=== PATIENT | female | born 1980 | race Caucasian/White ===

== ENCOUNTER 2019-08-29 13:21 | Observation (INO) | payer OTHER, SELFPAY ==
--- NOTE | ~2019-08-29 | XR_ITS ---
EXAMINATION: XR ERCP DATE: 08/31/2019 11:26 INDICATION: Gallstones TECHNIQUE: Multiple spot fluoroscopic images of the right upper quadrant were obtained during endosco pic retrograde cholangiopancreatography (ERCP) performed by Dr. Torres. Radiologist was not present f or the imaging or procedure. The amount of fluoroscopy time used during this procedure was 2.0 minute s. COMPARISON: Cholangiogram dated 08/30/2019 FINDINGS: Cholecystectomy clips in the right upper quadrant. Images demonstrate an endoscope in the second port ion of the duodenum with cannulation of first the main pancreatic duct and subsequently the common bi le duct. Retrograde contrast injections into the common bile duct demonstrates a normal caliber commo n bile duct and distal cystic duct with no evident internal filling defects on the contrast opacified portions of the duct. The distalmost duct remains unopacified. IMPRESSION: 1. Fluoroscopy utilized during ERCP. Please refer to the ERCP procedure note for additional details. Reviewed, dictated and finalized at location A. IMPRESSION: 1. Fluoroscopy utilized during ERCP. Please refer to the ERCP procedure note fo r additional details.
--- NOTE | ~2019-08-29 | US_ITS ---
EXAMINATION: US right upper quadrant DATE: 08/29/2019 14:16 INDICATION: Right upper quadrant pain TECHNIQUE: Multiple grayscale and Doppler ultrasound images of the abdomen were obtained. COMPARISON: None available FINDINGS: The head and and body of the pancreas are normal. The pancreatic tail is obscured by bowel gas. The liver is normal with normal echogenicity and echotexture. No surface nodularity. Normal hepa topetal flow in the main portal vein. Stones are present in the gallbladder. There is mild gallbladde r wall thickening measuring up to 5 mm. No pericholecystic fluid is identified. The normal common alexander e duct measures 4 mm. Sonographic James sign is positive. IMPRESSION: 1. Cholelithiasis, mild gallbladder wall thickening, and positive sonographic James sign which can b e seen in the setting of cholecystitis. Reviewed, dictated and finalized at location A. IMPRESSION: 1. Cholelithiasis, mild gallbladder wall thickening, and positive sonographic M urphy sign which can be seen in the setting of cholecystitis.
--- NOTE | ~2019-08-29 | XR_ITS ---
EXAMINATION: XR cholangiogram surg 1st inj DATE: 08/30/2019 16:26 INDICATION: Intraoperative cholangiogram TECHNIQUE: 208 fluoroscopic images of the right upper quadrant were obtained during intraoperative ch olangiography performed by the surgeon. I was not present in the operating room. Fluoroscopy exposure time was 36.2. COMPARISON: None. FINDINGS: Injected contrast progresses to the distal common bile duct but does not readily pass into the duodenum, consistent with distal bile duct obstruction. IMPRESSION: 1. Obstructed distal common bile duct. This finding was discussed with Dr. Vazquez in the operating r oom at 1545 hours on 08/30/2019. Reviewed, dictated and finalized at location A. IMPRESSION: 1. Obstructed distal common bile duct. This finding was discussed with Dr. Sharlene leon in the operating room at 1545 hours on 08/30/2019.
--- NOTE | ~2019-08-29 | NM_ITS ---
EXAMINATION: NM hepatobiliary w pharm DATE: 08/30/2019 10:01 INDICATION: Abdominal pain. COMPARISON: Ultrasound 08/29/2019 TECHNIQUE: 5.1 mCi Tc-99m mebrofenin (Choletec) was administered intravenously. Scintigraphic images of the abdomen were obtained for one hour. Then, 1.9 mcg sincalide (Kinevac) IV was administered, an d imaging was continued for 30 minutes. FINDINGS: There is normal clearance of radiotracer from the blood pool. There is homogeneous tracer u ptake by the liver. Activity progresses to the bowel and gallbladder. Gallbladder ejection fraction (GBEF) was 54%. Note that most patients with gallbladder dysfunction have GBEF < 35%, which overlaps with the broad normal range of 10-90%. IMPRESSION: 1. Normal hepatobiliary scintigraphy. Reviewed, dictated and finalized at location A.
[2019-08-29 13:37] VITALS: BP 109/65; PULSE 80; RESP 20; TEMP 36.9; O2SAT 99
--- NOTE | 2019-08-29 13:56 | ED.GENADULT ---
HPI - General Adult General Chief complaint: Abdominal Pain Stated complaint: abd pain Time Seen by Provider: 08/29/19 13:35 History of Present Illness HPI narrative: Patient is a 38 y/o female complaining of intermittent right upper abdominal pain for last 3 months. She states that she had an episode of severe pain while at work several hours ago. She rated her pain as 8/10 with some radiation to epigastric area. She suspects that coffee she drank this morning may have aggravated her pain. Currently, she states that her pain is better and rates it as 4/10. She has some nausea, but no vomiting. She has no fever, cough, chest pain or dysuria. Related Data Home Medications Medication Instructions Recorded Confirmed amitriptyline 50 mg PO HS 08/29/19 norgestimate-ethinyl estradiol 1 tablet PO HS 08/29/19 [Tri-Sprintec (28)] oxycodone-acetaminophen 1 tab/kg PO Q6-12H PRN 08/29/19 zolpidem 10 mg PO HS 08/29/19 Allergies Allergy/AdvReac Type Severity Reaction Status Date / Time No Known Allergies Allergy Verified 08/29/19 13:43 Review of Systems Constitutional: Constitutional: Denies chills, Denies fever(s), Denies headache(s) and Denies weakness Eyes: Eyes: Denies blurry vision ENT: Denies headache(s) and Denies neck pain Cardiovascular: Cardiovascular: Denies chest pain and Denies dyspnea Respiratory: Respiratory: Denies cough and Denies dyspnea Gastrointestinal: Gastrointestinal: Reports abdominal pain, Denies diarrhea, Reports nausea and Denies vomiting Genitourinary: Genitourinary: Denies hematuria and Denies dysuria Musculoskeletal: Musculoskeletal: Denies back pain and Denies neck pain Neurologic: Denies headache(s) and Denies weakness [facility] Social History Social History Gender identity (if verbalized by the patient): Female Exam Const: General: no acute distress and well developed Orientation/consciousness: oriented to person, oriented to place, oriented to time and patient oriented x3 HENMT: Head: normocephalic Ears: external ears normal General nose exam: Normal external nose present Eyes: General: appearance normal, both eyes and all related structures Conjunctivae: conjunctivae normal Neck: Neck: normal visual inspection and full ROM Chest: Chest palpation & inspection: normal inspection of the chest and no tenderness Resp: Effort & Inspection: normal respiratory effort Auscultation: clear to auscultation bilaterally Cardio: Rate: regular rate Rhythm: regular rhythm GI: GI Palp: Yes abdominal tenderness, Yes Soft to palpation and Yes Tenderness to palpation present (GI) (RUQ) Skin: General skin exam: normal color and turgor normal Neuro: General: oriented to person, oriented to place, oriented to time and patient oriented x3 Cognition (Neuro): normal cognition Extrem: General: normal to inspection, full ROM and no pedal edema Psych: Appearance: grossly normal Mental Status: mental status grossly normal Affect: normal affect Course Consultations Consultation #1: Discussed with Dr. Torres, who recommends admission for observation and order HIDA scan. Date: 08/29/19 Time: 15:37 Consultation #2: Discussed with FRANCINE Dotson, who agrees to admit to Dr. Guzman. Date: 08/29/19 Time: 16:14 Medical Decision Making Lab Data Result diagrams: 08/29/19 14:35 08/29/19 14:35 Labs: Lab Results 08/29/19 08/29/19 08/29/19 Range/Units 14:35 14:35 15:12 WBC 8.4 (4.5-10.0) K/mm3 RBC 3.95 L (4.2-5.4) M/mm3 Hgb 12.1 (12.0-15.0) g/dL Hct 36.3 L (37.0-47.0) % MCV 91.9 (80-100) fl MCH 30.6 (26-34) pg MCHC 33.3 (32-36) g/dl RDW 12.4 (11.5-14.5) % Plt Count 347 (150-375) k/mm3 MPV 10.9 H (7.4-10.4) fl Immature Gran % (Auto) 0.4 (0-0.5) % Neut % (Auto) 73.9 H (45.5-73.1) % Lymph % (Auto) 21.0 (18.3-44.2) % [place] % (Auto) 3.7 (2.6-8.5) %
[2019-08-29 14:46] LABS: Basophils Percent Auto 0.2 % (0.2-1.2); Eosinophils Absolute Auto 0.1 K/mm3 (0-0.3); Eosinophils Percent Auto 0.8 % (0-4.4); Hematocrit 36.3 % (37.0-47.0); Hemoglobin 12.1 g/dL (12.0-15.0); Immature Granulocyte Absolute 0.03 K/mm3 (0.00-0.031); Immature Granulocyte Percent A 0.4 % (0-0.5); Lymphocytes Absolute Auto 1.77 K/mm3 (0.9-3.2); Mean Corpuscular HGB Conc 33.3 g/dl (32-36); Mean Corpuscular Hemoglobin 30.6 pg (26-34); Mean Corpuscular Volume 91.9 fl (80-100); Mean Platelet Volume 10.9 fl (7.4-10.4); Monocytes Absolute Auto 0.3 K/mm3 (0.1-0.6); Monocytes Percent Auto 3.7 % (2.6-8.5); Neutrophils Absolute Auto 6.2 K/mm3 (1.3-6.7); Neutrophils Percent Auto 73.9 % (45.5-73.1); Platelet Count Result 347 k/mm3 (150-375); Red Blood Count 3.95 M/mm3 (4.2-5.4); Red Cell Distribution Width 12.4 % (11.5-14.5); White Blood Count 8.4 K/mm3 (4.5-10.0)
[2019-08-29 14:54] LABS: Alanine Aminotransferase 89 U/L (4-35); Alkaline Phosphatase 216 U/L (38-126); Aspartate Amino Transferase 113 U/L (14-36); Bilirubin,Total 0.9 mg/dL (0.2-1.3); Blood Urea Nitrogen 10 mg/dL (7-17); Carbon Dioxide 25 mmol/L (22-30); Chloride 104 mmol/L (98-107); Estimated CRCL calculation 91 ml/min; Estimated Glomerular Filt Rate > 60; Glucose 105 mg/dL (65-105); Lipase 33 U/L (23-300); Potassium 3.7 mmol/L (3.4-5.0); Sodium 137 mmol/L (137-145)
[2019-08-29 15:00] VITALS: BP 112/82; PULSE 82; RESP 20; O2SAT 98
[2019-08-29 15:23] LABS: Add Urine Microscopic? YES; Appearance Urine Clear (Clear); Bacteria Urine Trace /hpf; Bilirubin Urine Negative (Negative); Blood Urine Negative (Negative); Color Urine Amber (Yellow); Glucose Urine UA Negative (Negative); Ketones Urine Trace mg/dL (Negative); Leukocyte Esterase Ur Negative LEU/UL (Negative); Mucus Urine Heavy /lpf; Nitrate Urine Negative (Negative); Protein Urine Negative (Negative); RBC Urine 0-2 /hpf (0-2); Specific Grav Ur 1.018 (1.001-1.035); Squamous Epithelial Cell Urine Few /hpf (Few)
[2019-08-29] MEDS: KETOROLAC 30 MG/ML VIAL (*BKC) IV PUSH (16:20)
[2019-08-29 18:14] VITALS: BP 109/73; PULSE 77; RESP 20; O2SAT 98
[2019-08-29 18:15] LABS: Hepatitis B Surface Antigen Negative (Negative)
[2019-08-29 18:20] LABS: HAV RESULT Negative (Negative); Hepatitis B Core IgM Result Negative (Negative)
[2019-08-29 18:32] LABS: Hepatitis C Virus Antibody Negative (Negative)
--- NOTE | 2019-08-29 18:57 | PC.NURSE ---
This patient, Светлана Dangelo, was admitted to [facility] Surg Room 312-. Patient/family oriented to hospital policies and general routines including ID bracelet, bed and alarms, visiting hours, pain management, procedures, bathroom and other care routines, personal items, smoking policy, room service/diet, and visiting hours. Valuables list has been completed. Information on how to activate the Rapid Response Team has been discussed. Patient/Family are encouraged to report perceived risks to care and to ask questions if they do not understand what they are told or what they should do.
[2019-08-29 19:00] VITALS: BMI 31.7
--- NOTE | 2019-08-29 21:15 | PM.IMHP ---
H&P: HPI History of Present Illness Chief complaint: Abdominal pain. Narrative: Светлана Dangelo is a 38-year-old female earlier this afternoon for evaluation of abdominal pain. While at work today, not long after eating, she developed a sudden, severe pain in her right upper quadrant radiating somewhat into the epigastrium that she describes as a twisting or pressure like pain. It was severe enough that ?I was doubled over in pain and she rates that pain 8/10. She has had similar pains each night for the past for 5 days, and has been sleeping poorly due to the pain. She goes on to say that she has had these symptoms intermittently since May 2019, and they have increased in frequency and duration. She was seen by her primary care provider and in fact had a right upper quadrant ultrasound scheduled as an outpatient tomorrow. Prior to today, she has no known history of gallbladder disease. She does have a history of GERD, peptic ulcers, Arreola's esophagus, and diverticulitis but states that this pain is different to all of those. She has not had fever or chills but on occasion does have sweats when the pain is particularly intense. Occasionally she will have nausea with the pain but she has not had vomiting. She frequently has loose, oily bowel movements but she has not noticed blood or mucus in the stools. Review of Systems Review of Systems: Narrative: Twelve systems were reviewed with pertinent positives and negatives as per HPI. She denies chest pain and shortness of breath. No recent travel or sick contacts. No exposure to those positive for COVID to her knowledge. Except as documented, all other systems were reviewed and are negative. [facility] Past Medical History Medical History (Updated 08/29/19 @ 23:07 by Nila Ladd PA-C) Barretts esophagus (~2013) Diverticulitis Gastric ulcer Gastroesophageal reflux disease Surgical History Surgical History (Updated 08/29/19 @ 23:05 by Nila Ladd PA-C) History of tubal ligation Family History Family History (Updated 08/29/19 @ 23:05 by Nila Ladd PA-C) Sibling Acute myocardial infarction, Onset Age: 39 Diabetes mellitus Grandparent Congestive heart failure Mother Cerebrovascular accident Father Diabetes mellitus Social History Social History (Updated 08/29/19 @ 23:06 by Nila G. Gerling, PA-C) Social History: The patient lives in [place] with her and 2 children. She works at a local [employer]. She smoked cigarettes for 14 years, but has been vaping exclusively for 6 years. She used to binge drink, but has not had alcohol for 11 years. No illicit substance use. She designates her as her surrogate decision maker and she wishes to be a full code. Spiritual care concerns: No Meds Home Medications and Allergies Home Medications Medication Instructions Recorded Confirmed Type amitriptyline 50 mg PO HS 08/29/19 08/29/19 History norgestimate-ethinyl estradiol 1 tablet PO HS 08/29/19 08/29/19 History [Tri-Sprintec (28)] oxycodone-acetaminophen 1 tablet PO Q4H PRN 08/29/19 08/29/19 History zolpidem 10 mg PO HS 08/29/19 08/29/19 History Allergies Allergy/AdvReac Type Severity Reaction Status Date / Time oyster extract Allergy Severe Swelling Verified 08/29/19 20:06 of Lip/Tongue/Throat peach fuzz Allergy Severe Rash Uncoded 08/29/19 20:07 Vital Signs Vital Signs - 24 hr 08/29/19 13:37 08/29/19 15:00 08/29/19 18:14 Temperature 98.4 F Pulse Rate 80 82 77 Respiratory Rate 20 20 20 Blood Pressure 109/65 112/82 109/73 Pulse Oximetry 99 98 98 Exam Narrative: Exam Narrative: General: Well-developed female sitting up in bed reading a book in no distress. HEENT: Normocephalic, atraumatic. PERRL, EOMI. Sclerae anicteric. Oral mucosa moist. Neck: Supple. Respiratory: Lungs are clear to auscultation bilaterally. Cardiovascular: Regular rate and rhythm
[2019-08-29] MEDS: SODIUM CHLORIDE 0.9% IV 1,000 ML 100 ML IV CONT (21:44)
[2019-08-29 22:00] VITALS: BP 120/68; PULSE 74; RESP 20; TEMP 36.7; O2SAT 100
[2019-08-29] MEDS: AMITRIPTYLINE HCL 25 MG TABLET 50 MG PO (22:07)
[2019-08-29] MEDS: ZOLPIDEM TARTRATE 5 MG TABLET 10 MG PO (22:36)
[2019-08-29] MEDS: PANTOPRAZOLE SODIUM IV 40 MG VIAL IV PUSH (23:20)
[2019-08-30] VITALS (15 sets, daily range): BP systolic 94–144; BP diastolic 50–98; PULSE 64–84; RESP 12–20; TEMP 36.3–37; O2SAT 94–100
[2019-08-30 06:12] LABS: Basophils Percent Auto 0.4 % (0.2-1.2); Eosinophils Absolute Auto 0.1 K/mm3 (0-0.3); Eosinophils Percent Auto 2.3 % (0-4.4); Hematocrit 32.8 % (37.0-47.0); Hemoglobin 10.6 g/dL (12.0-15.0); Immature Granulocyte Absolute 0.01 K/mm3 (0.00-0.031); Immature Granulocyte Percent A 0.2 % (0-0.5); Lymphocytes Absolute Auto 2.58 K/mm3 (0.9-3.2); Lymphocytes Percent Auto 53.8 % (18.3-44.2); Mean Corpuscular HGB Conc 32.3 g/dl (32-36); Mean Corpuscular Hemoglobin 30.2 pg (26-34); Mean Corpuscular Volume 93.4 fl (80-100); Mean Platelet Volume 10.7 fl (7.4-10.4); Monocytes Absolute Auto 0.3 K/mm3 (0.1-0.6); Monocytes Percent Auto 5.6 % (2.6-8.5); Neutrophils Absolute Auto 1.8 K/mm3 (1.3-6.7); Neutrophils Percent Auto 37.7 % (45.5-73.1); Platelet Count Result 277 k/mm3 (150-375); Red Blood Count 3.51 M/mm3 (4.2-5.4); Red Cell Distribution Width 12.4 % (11.5-14.5); White Blood Count 4.8 K/mm3 (4.5-10.0)
[2019-08-30 06:23] LABS: Alanine Aminotransferase 124 U/L (4-35); Albumin Level 3.1 g/dL (3.5-5.1); Alkaline Phosphatase 200 U/L (38-126); Aspartate Amino Transferase 147 U/L (14-36); Bilirubin,Total 0.9 mg/dL (0.2-1.3); Blood Urea Nitrogen 9 mg/dL (7-17); Calcium 8.4 mg/dL (8.4-10.2); Carbon Dioxide 24 mmol/L (22-30); Chloride 107 mmol/L (98-107); Estimated CRCL calculation 92 ml/min; Estimated Glomerular Filt Rate > 60; Glucose 92 mg/dL (65-105); Potassium 3.8 mmol/L (3.4-5.0); Sodium 136 mmol/L (137-145)
[2019-08-30] MEDS: PANTOPRAZOLE SODIUM IV 40 MG VIAL IV PUSH ×2 (08:07→20:10)
--- NOTE | 2019-08-30 08:07 | WPDGICN ---
Assessment and Plan Assessment and plan (1) Cholecystitis with cholelithiasis: Qualifiers: Biliary obstruction: without biliary obstruction Cholecystitis acuity: acute Cholelithiasis location: gallbladder Qualified Code(s): K80.00 - Calculus of gallbladder with acute cholecystitis without obstruction Code(s): K80.10 - Calculus of gallbladder with chronic cholecystitis without obstruction Status: Acute Assessment and Plan: Abdominal pain consistent with cholecystitis. Patient has ultrasound which confirms gallstones and evidence for gallbladder inflammation. Elevated LFTs appear to correlate with this. Plan is for HIDA scan surgery consult for cholecystectomy. I would suggest intraoperative cholangiogram. An ERCP only if stones found after gallbladder removed. (2) Elevated LFTs: Code(s): R79.89 - Other specified abnormal findings of blood chemistry Status: Acute Assessment and Plan: Hepatitis serologies are negative. Elevated LFTs most consistent with gallbladder disease in cholecystitis. Plan is to keep patient on broad-spectrum antibiotics. Surgery consult in progress. (3) Gastroesophageal reflux disease: Code(s): K21.9 - Gastro-esophageal reflux disease without esophagitis Status: Acute Assessment and Plan: Patient denies heartburn. Plan is for follow-up EGD because a history of Arreola's esophagus. Anti acids at as needed at this time is advised. (4) Barretts esophagus: Onset Date: ~2013 Code(s): K22.70 - Arreola's esophagus without dysplasia Status: Acute Assessment and Plan: Follow-up EGD on at 3 year basis is advised. Has been 6 years since last exam. Plan is for elective EGD after discharge. GI Consult Note Consult date/time: 08/30/19 08:07 HPI: Светлана Dangelo is a 38 year old female Seen in evaluation at the request of the emergency room. Patient reports intermittent episodes of right upper quadrant pain since May of 2019. She she states pain will occur intermittently. Typically pain in the right upper quadrant. Pain is described as tightening and twisting in nature. Episodes with sometimes last for several hours to all night. Yesterday morning she began to have a rather severe episode in the morning after drinking coffee. She presented to the emergency room. Ultrasound of the right upper quadrant confirms gallstones with gallbladder wall thickening consistent with cholecystitis. Patient denies any fever. She denies any jaundice. She has had no recent travel. Her family history is noncontributory. Past medical history is significant for a history of GE reflux disease and Arreola's esophagus. Been more than 10 years since last endoscopic exam. She denies frequent heartburn and takes no medications for this at the present time. She does report in the past having been told she had diverticulosis. Review of Systems Review of Systems: All systems reviewed & are unremarkable except as noted in HPI and below PMFSH Past Medical History Medical History Barretts esophagus (~2013) Diverticulitis Gastric ulcer Gastroesophageal reflux disease Surgical History Surgical History History of tubal ligation Family History Family History Sibling Acute myocardial infarction, Onset Age: 39 Diabetes mellitus Grandparent Congestive heart failure Mother Cerebrovascular accident Father Diabetes mellitus Social History Social History Social History: The patient lives in [place] with her and 2 children. She works at a local [employer]. She smoked cigarettes for 14 years, but has been vaping exclusively for 6 years. She used to binge drink, but has not had alcohol fo
--- NOTE | 2019-08-30 11:49 | PM.CNGS ---
Assessment and Plan Assessment and plan (1) Cholecystitis with cholelithiasis: Qualifiers: Biliary obstruction: without biliary obstruction Cholecystitis acuity: acute Cholelithiasis location: gallbladder Qualified Code(s): K80.00 - Calculus of gallbladder with acute cholecystitis without obstruction Code(s): K80.10 - Calculus of gallbladder with chronic cholecystitis without obstruction Status: Acute Assessment and Plan: Ultrasound reviewed and discussed with the patient. She has evidence of cholecystitis with cholelithiasis and elevated LFTs. I discussed the pathophysiology of gallbladder disease with the patient and treatment options at this point. HIDA scan was normal. She has had a significant increase in her pain over the last two weeks and has not been tolerating a diet for a few days. Recommended proceeding with a laparoscopic cholecystectomy, possible open, possible IOC, by Dr. Vazquez. Description of the procedure, risks, benefits, indications, and expected outcomes were discussed with the patient in detail. All questions were answered. The patient would like to proceed with surgery. I discussed the patient's case and plan of care with Dr. Vazquez today and we will plan on adding her onto the surgery schedule next available. Continue IV fluids, NPO status, and analgesics for now. IV antibiotics will be continued pre-operatively. Thank you for allowing me to see the patient in consultation and we will continue to follow along with you. (2) Elevated LFTs: Code(s): R79.89 - Other specified abnormal findings of blood chemistry Status: Acute (3) Gastroesophageal reflux disease: Code(s): K21.9 - Gastro-esophageal reflux disease without esophagitis Status: Acute (4) Barretts esophagus: Onset Date: ~2013 Code(s): K22.70 - Arreola's esophagus without dysplasia Status: Acute History of Present Illness Consult details Consult date: 08/30/19 Reason for consult: gallstones (Cholelithiasis and possible cholecystitis) Requesting physician: Nila Ladd PA-C Narrative: This is a 38-year-old female with a history of Arreola's esophagus and gastric ulcers, who presented to the emergency department with complaints of abdominal pain. She reports that she has been having symptoms of right upper quadrant abdominal pain a few hours after eating at night since May of 2019. This pain was intermittent and mild initially. She reports that the pain has slowly become more frequent and over the past 2 weeks this pain occurs nightly. She states that on Thursday, she had eaten a large meal of turkey, mashed potatoes, gravy, and rolls, which was followed by an acute onset of the same type of right upper quadrant abdominal pain. This pain was more intense than previously and was associated with nausea, but no vomiting. She states that she did not eat the next day and the pain slowly began to improve. Yesterday morning, she then felt much better with only very mild tolerable pain in the RUQ. She attempted to drink coffee and eat some applesauce and the pain quickly returned. She then presented to the emergency department for further evaluation. Right upper quadrant ultrasound showed cholelithiasis with mild gallbladder wall thickening and positive James's sign. Labs revealed a normal white blood cell count with elevated LFTs, including AST 113, ALT 89, alk phos 216, and a normal total bilirubin. The patient was admitted to the Hospitalist and Gastroenterology was consulted. The patient has since been put on IV antibiotics and IV fluids. The patient is now being seen on the medical floor. HIDA scan was performed this morning as well and was normal. The patient states her abdominal pain was mild but did occur after receiving the IV medication during her HIDA scan. She denies abdominal pain at the time of my exam but states she is station tender. No nausea, vomiting, or bloating. Reports her bowels have
--- NOTE | 2019-08-30 13:19 | PM.IMPN ---
Progress Note: A&P Assessment and Plan (1) Cholecystitis with cholelithiasis: Qualifiers: Biliary obstruction: without biliary obstruction Cholecystitis acuity: acute Cholelithiasis location: gallbladder Qualified Code(s): K80.00 - Calculus of gallbladder with acute cholecystitis without obstruction Code(s): K80.10 - Calculus of gallbladder with chronic cholecystitis without obstruction Status: Acute Assessment and Plan: The pt presented with progressively worsening RUQ abdominal pain which was postprandial but is now occurring despite being NPO. RUQ ultrasound revealed cholelithiasis, mild gallbladder wall thickening, and positive sonographic James sign. Her clinical picture is consistent with cholecystitis. LFTs are elevated. HIDA scan was normal. She is on IV zosyn which will be continued at this time. She is currently NPO and will undergo cholecystectomy this afternoon per general surgery. Plan to continue IV analgesics as needed. Additional GI and general surgery input is greatly appreciated. (2) Elevated LFTs: Code(s): R79.89 - Other specified abnormal findings of blood chemistry Status: Acute Assessment and Plan: AST is 147, ALT 124, ALP is 200. This is likely due to her acute cholecystitis. Hepatitis panel was negative. RUQ US revealed no evidence of ductal dilatation. Plan to continue to monitor. (3) Gastroesophageal reflux disease: Code(s): K21.9 - Gastro-esophageal reflux disease without esophagitis Status: Acute Assessment and Plan: The patient has a hx of gastric ulcer in 2013 and was told that she had Arreola's esophagus at that time. GI is on board and recommendations are greatly appreciated. She will need an elective EGD outpatient after discharge. Plan to continue protonix. Time Spent With Patient Time with patient: 15 - 25 minutes Subjective Date/time seen: 08/30/19 13:19 Interval history: Mrs. Dangelo is seen and examined at bedside. She reports that she is having RUQ abdominal discomfort despite being NPO. She denies nausea, vomiting, fever, and chills. She denies chest pain, dyspnea, and palpitations. She has no other concerns at this time and is signing consents for her cholecystectomy which will take place this afternoon. Review of Systems Review of Systems: All systems reviewed & are unremarkable except as noted in HPI and below Exam Narrative: Exam Narrative: General: Very pleasant, well-developed, and well-nourished 38 y.o. female who is lying in the semi-recumbent position in bed in no acute distress. HEENT: Normocephalic and atraumatic. Conjunctivae and lids normal. Mucous membranes tacky. Neck: Supple without lymphadenopathy or masses. Cardiac: Regular rate and rhythm. S1 and S2 normal. Lungs: Effort normal. Lungs are clear to auscultation bilaterally. Abdomen: Bowel sounds are normoactive. The pt has RUQ tenderness to palpation. She also has mild generalized discomfort but pain is primarily localized to the RUQ. Abdomen is soft and non-distended. No rebound or guarding present. Extremities: No lower extremity edema bilaterally. Gladis sign negative. Neurological: Alert. No focal neurological deficits noted. Speech is clear. Skin: Warm and dry. Psychiatric: Judgment and insight intact. Mood and affect normal. Objective Data Vital Signs Vital Signs: Vital Signs - 24 hr 08/29/19 13:37 08/29/19 15:00 08/29/19 18:14 Temperature 98.4 F Pulse Rate 80 82 77 Respiratory Rate 20 20 20 Blood Pressure 109/65 112/82 109/73 Pulse Oximetry 99 98 98 08/29/19 22:00 08/30/19 02:00 08/30/19 06:00 Temperature 98.1 F 97.6 F 98.3 F Pulse Rate 74 75 64 Respiratory Rate 20 18 16 Blood Pressure 120/68 100/52 L 94/50 L Pulse Oximetry 100 98 98 08/30/19 06:45 08/30/19 08:00 Temperature Pulse Rate 64 Respiratory Rate 16 Blood Pressure 102/57 L Pulse Oximetry 98 Intake/Output Intake/Output: Intake
[2019-08-30] MEDS: LACTATED RINGERS 1,000 ML 30 ML IV CONT (13:40)
--- NOTE | 2019-08-30 13:48 | WPDANESEPPF ---
Anes - Initial Pre Proc Eval Procedure: Operation Date: 08/30/19 14:30 Proposed Procedures p Laparoscopic Cholecystectomy With Intraoperative Cholangiograms,Possible Open - Micheal Vazquez DO Date/Time: 08/30/19 13:48 Surgeon: Dasia Parsons PA-C Pre Op Diagnosis: Abdominal pain. Patient Data Age: 38 Gender: F Height: 5 ft 9 in Weight: 97.6 kg Last Vital Signs Temp 36.8 C 08/30/19 06:00 Pulse 64 08/30/19 08:00 Resp 16 08/30/19 08:00 BP 102/57 L 08/30/19 06:45 Pulse Ox 98 08/30/19 08:00 Allergies Allergy/AdvReac Type Severity Reaction Status Date / Time oyster extract Allergy Severe Swelling Verified 08/29/19 20:06 of Lip/Tongue/Throat peach fuzz Allergy Severe Rash Uncoded 08/29/19 20:07 Home Medications Medication Instructions Recorded Confirmed Type amitriptyline 50 mg PO HS 08/29/19 08/29/19 History norgestimate-ethinyl estradiol 1 tablet PO HS 08/29/19 08/29/19 History [Tri-Sprintec (28)] oxycodone-acetaminophen 1 tablet PO Q4H PRN 08/29/19 08/29/19 History zolpidem 10 mg PO HS 08/29/19 08/29/19 History Laboratory Tests 08/29/19 08/29/19 08/29/19 14:34 14:35 14:35 WBC 8.4 K/mm3 K/mm3 (4.5-10.0) RBC 3.95 M/mm3 L M/mm3 (4.2-5.4) Hgb 12.1 g/dL g/dL (12.0-15.0) Hct 36.3 % L % (37.0-47.0) MCV 91.9 fl fl (80-100) MCH 30.6 pg pg (26-34) MCHC 33.3 g/dl g/dl (32-36) RDW 12.4 % % (11.5-14.5) Plt Count 347 k/mm3 k/mm3 (150-375) MPV 10.9 fl H fl (7.4-10.4) Immature Gran % (Auto) 0.4 % % (0-0.5) Neut % (Auto) 73.9 % H % (45.5-73.1) Lymph % (Auto) 21.0 % % (18.3-44.2) [place] % (Auto) 3.7 % % (2.6-8.5) Eos % (Auto) 0.8 % % (0-4.4) Baso % (Auto) 0.2 % % (0.2-1.2) Lymph # (Auto) 1.77 K/mm3 K/mm3 (0.9-3.2) [place] # (Auto) 0.3 K/mm3 K/mm3 (0.1-0.6) Eos # (Auto) 0.1 K/mm3 K/mm3 (0-0.3) Baso # (Auto) 0.0 K/mm3 K/mm3 (0.0-0.1) Abs Immat Gran (auto) 0.03 K/mm3 K/mm3 (0.00-0.031) Absolute Neuts (auto) 6.2 K/mm3 K/mm3 (1.3-6.7) Absolute Nucleated RBC 0.0 K/mm3 K/mm3 (0.0-0.012) Nucleated RBC % 0.0 % % (0.0-0.2) Sodium 137 mmol/L mmol/L (137-145) Potassium 3.7 mmol/L mmol/L (3.4-5.0) Chloride 104 mmol/L mmol/L (98-107) Carbon Dioxide 25 mmol/L mmol/L (22-30) BUN 10 mg/dL mg/dL (7-17) Creatinine 0.90 mg/dL mg/dL (0.7-1.0) Estim Creat Clear Calc 91 ml/min ml/min Estimated GFR > 60 (59 - ) Glucose 105 mg/dL mg/dL (65-105) Calcium 9.0 mg/dL mg/dL (8.4-10.2) Total Bilirubin 0.9 mg/dL mg/dL (0.2-1.3) AST 113 U/L H U/L (14-36) ALT 89 U/L H U/L (4-35) Alkaline Phosphatase 216 U/L H U/L (38-126) Total Protein 8.0 g/dL g/dL (6.3-8.2) Albumin 4.0 g/dL g/dL (3.5-5.1) Lipase 33 U/L U/L (23-300) Urine Color Urine Appearance Urine pH Ur Specific [place] Urine Protein Urine Glucose (UA) Urine Ketones Ur Blood (Man) Urine Nitrate Urine Bilirubin Urine Urobilinogen Leukocyte Esterase Rfl Urine RBC Urine WBC Ur Squamous Epith Cells Urine Bacteria Urine Mucus Hepatitis A IgM Ab Negative (Negative) Hep Bs Antigen Negative (Negative) Hep B Core IgM Ab Negative (Negative) Hepatitis C Ab Screen Negative (Negative) 08/29/19 08/30/19 08/30/19 15:12 05:47 05:47 WBC 4.8 K/mm3 K/mm3 (4.5-10.0) RBC 3.51 M/mm3 L M/mm3 (4.2-5.4) Hgb 10.6 g/d
[2019-08-30] MEDS: IBUPROFEN IV 800 MG/200 ML 800 MG/200 ML BAG 400 MG IVPB (14:10)
--- NOTE | 2019-08-30 14:23 | SUR.PREOP ---
1335-[id number]. MIL KEARNS SPOKE WITH , DIDIER, THAT PT IS IN PREOP AND SCHEDULE FOR SURGERY SOON.
--- NOTE | 2019-08-30 14:23 | PC.NURSE ---
To OR per [ BED], IV SITE CLEAN, IN N O APPARENT DISTRESS, FAMILY AWARE OF PROCEDURE PERMITS SIGNED AND ESTEBAN GIVEN REPORT [ ]
[2019-08-30] MEDS: BUPIVACAINE/EPINEPHRINE 0.5% 10 ML VIAL 30 ML INFILTRATE (15:35)
--- NOTE | 2019-08-30 16:11 | PM.PROC ---
Procedure Note - Detailed Date of procedure: 08/30/19 Pre-op diagnosis: Chronic calculous cholecystitis Post-op diagnosis: same Procedure performed: Laparoscopic Cholecystectomy with intraoperative cholangiogram Description of procedure: Procedure as well as risks, benefits, and alternatives were discussed with patient. Written consent was obtained and placed in chart prior to procedure. The patient was brought back to surgical suite. Patient was placed in supine position on operating table. Time-out was done to confirm patient and procedure. Patient was then intubated by the anesthesia department. Abdomen was prepped and draped in sterile fashion using chlorhexidine prep. 0.5% bupivacaine with epinephrine was infiltrated at each site of incision. A 5 millimeter incision was made near the umbilicus, and a 5 millimeter Optiview trocar was advanced through the abdominal layers under direct visualization. Once inside the abdominal cavity, carbon dioxide was insufflated to create a pneumoperitoneum. The camera was inserted and the abdomen was inspected. No immediate abnormalities were identified. The patient was placed in reverse Trendelenburg position and rotated slightly to the left. An 11 millimeter incision was made in the subxiphoid region, and an 11 millimeter trocar was inserted under direct visualization. Two 5 millimeter incisions were made in the right upper quadrant, and two 5 millimeter trocars were inserted under direct visualization. The gallbladder was identified and grasped at the fundus and retracted superiorly. It was then grasped at the infundibulum retracted laterally. Careful dissection around the neck of the gallbladder was performed using blunt dissection with a [place] grasper and hook electrocautery. The cystic duct was identified, and a window was created behind it. The cystic artery was also identified and a window was created behind it. The critical view of safety was identified, visualizing the cystic duct running directly into the neck of the gallbladder, and the cystic artery running directly into the wall of the gallbladder. A 5 millimeter clip dispatcher bus and trolley was then used to place 2 clips proximally and 1 clip distally on the cystic artery, and then it was transected using endoscopic scissors. The Manuel clamp was then placed across the neck of the gallbladder and the Manuel cholangiocatheter was advanced into the distal neck of the gallbladder. Saline flushed with ease and bile was able to be aspirated. The patient was flattened out in bed and fluoroscopy was then used to obtain an intraoperative cholangiogram. The images were reviewed and sent to the radiologist for interpretation. The patient was then repositioned into a reverse Trendelenburg position. A 5 mm Endoclip dispatcher bus and trolley was then used to place 2 clips proximally 1 clip distally on the cystic duct, and then it was transected using endoscopic scissors. Once safely away from the contreras hepatitis, the gallbladder was dissected free from the liver bed using hook electrocautery. Hemostasis was achieved along the way. The gallbladder was removed completely and then removed through the subxiphoid port. The liver bed was then inspected. Hemostasis appeared adequate, and our clips appeared secure. The area was gently irrigated with sterile saline. No other abnormalities were seen. The patient was flattened out in bed, and 1 final inspection was made around the abdominal cavity. The subxiphoid port was removed, and a Cheo Kevin cone was used to approximate the fascia with an 0-Vicryl simple interrupted suture. The remaining ports were then removed under direct visualization, the camera was removed, and the pneumoperitoneum was released. The skin of the incisions was approximated using 4-0 Monocryl subcuticular sutures. Exofin glue was applied on top. The patient was then awakened from anesthesia, extubated, and transferred to recovery. Anesthesia: GETA and local (0.5% bupivicai
[2019-08-30] MEDS: MORPHINE SULFATE 2 MG/ML INJ IV PUSH ×2 (18:32→22:51)
--- NOTE | 2019-08-30 20:00 | PC.NURSE ---
Returned from OR per BED AT 1655 PUMCTURE SITES OPEN TO AIR DRY AND INTACT. ABDOMEN IS SOFT. PT STATES THAT SHE IS STILL HAVING SOME PAIN. PT WAS JUST GIVEN PER RRR FENYLY AND IBUPROFEN WILL CONT TO MONITOR [ ]
[2019-08-30] MEDS: KETOROLAC 30 MG/ML VIAL (*BKC) IV PUSH (20:06)
[2019-08-30] MEDS: SODIUM CHLORIDE 0.9% IV 1,000 ML 100 ML IV CONT (20:07)
[2019-08-30] MEDS: AMITRIPTYLINE HCL 25 MG TABLET 50 MG PO (20:10)
[2019-08-30] MEDS: ZOLPIDEM TARTRATE 5 MG TABLET 10 MG PO (20:13)
[2019-08-31] VITALS (15 sets, daily range): BP systolic 101–133; BP diastolic 57–82; PULSE 63–87; RESP 12–22; TEMP 35.9–36.6; O2SAT 96–100
[2019-08-31] MEDS: SODIUM CHLORIDE 0.9% IV 1,000 ML 100 ML IV CONT ×2 (02:41→16:57)
[2019-08-31] MEDS: KETOROLAC 30 MG/ML VIAL (*BKC) IV PUSH (02:41)
[2019-08-31 07:43] LABS: Basophils Percent Auto 0.3 % (0.2-1.2); Eosinophils Percent Auto 0.5 % (0-4.4); Hematocrit 31.9 % (37.0-47.0); Hemoglobin 10.3 g/dL (12.0-15.0); Immature Granulocyte Absolute 0.02 K/mm3 (0.00-0.031); Immature Granulocyte Percent A 0.3 % (0-0.5); Lymphocytes Absolute Auto 2.37 K/mm3 (0.9-3.2); Lymphocytes Percent Auto 39.9 % (18.3-44.2); Mean Corpuscular HGB Conc 32.3 g/dl (32-36); Mean Corpuscular Hemoglobin 29.9 pg (26-34); Mean Corpuscular Volume 92.7 fl (80-100); Mean Platelet Volume 10.4 fl (7.4-10.4); Monocytes Absolute Auto 0.3 K/mm3 (0.1-0.6); Monocytes Percent Auto 5.7 % (2.6-8.5); Neutrophils Absolute Auto 3.2 K/mm3 (1.3-6.7); Neutrophils Percent Auto 53.3 % (45.5-73.1); Platelet Count Result 294 k/mm3 (150-375); Red Blood Count 3.44 M/mm3 (4.2-5.4); Red Cell Distribution Width 12.2 % (11.5-14.5); White Blood Count 5.9 K/mm3 (4.5-10.0)
[2019-08-31 08:01] LABS: Alanine Aminotransferase 205 U/L (4-35); Albumin Level 3.2 g/dL (3.5-5.1); Alkaline Phosphatase 260 U/L (38-126); Aspartate Amino Transferase 266 U/L (14-36); Bilirubin,Total 1.5 mg/dL (0.2-1.3); Blood Urea Nitrogen 7 mg/dL (7-17); Calcium 8.1 mg/dL (8.4-10.2); Carbon Dioxide 23 mmol/L (22-30); Chloride 107 mmol/L (98-107); Estimated CRCL calculation 102 ml/min; Estimated Glomerular Filt Rate > 60; Glucose 76 mg/dL (65-105); Magnesium 1.9 mg/dL (1.6-2.3); Potassium 4.5 mmol/L (3.4-5.0); Sodium 135 mmol/L (137-145)
--- NOTE | 2019-08-31 09:05 | WPDANESPN ---
Anes - Prog Note Post-Op Date/Time: 08/31/19 09:05 Cardiovascular status: normal Respiratory status: normal Airway patency: baseline Mental status: baseline Post-Op hydration status: normal Vital Signs: Last Vital Signs Temp 36.5 C 08/31/19 06:00 Pulse 75 08/31/19 06:00 Resp 20 08/31/19 06:00 BP 109/68 08/31/19 06:00 Pulse Ox 100 08/31/19 06:00 I/O: Intake & Output 08/30/19 08/31/19 08/31/19 23:59 07:59 15:59 Intake Total 210 1478 Output Total 800 200 Balance -590 1278 Laboratory Tests 08/31/19 07:31 08/31/19 07:31 08/30/19 08/31/19 08/31/19 13:02 07:31 07:31 WBC 5.9 RBC 3.44 L Hgb 10.3 L Hct 31.9 L MCV 92.7 MCH 29.9 MCHC 32.3 RDW 12.2 Plt Count 294 MPV 10.4 Immature Gran % (Auto) 0.3 Neut % (Auto) 53.3 Lymph % (Auto) 39.9 [place] % (Auto) 5.7 Eos % (Auto) 0.5 Baso % (Auto) 0.3 Lymph # (Auto) 2.37 [place] # (Auto) 0.3 Eos # (Auto) 0.0 Baso # (Auto) 0.0 Abs Immat Gran (auto) 0.02 Absolute Neuts (auto) 3.2 Absolute Nucleated RBC 0.0 Nucleated RBC % 0.0 Sodium 135 L Potassium 4.5 Chloride 107 Carbon Dioxide 23 BUN 7 Creatinine 0.80 Estim Creat Clear Calc 102 Estimated GFR > 60 Glucose 76 Calcium 8.1 L Magnesium 1.9 Total Bilirubin 1.5 H AST 266 H ALT 205 H Alkaline Phosphatase 260 H Total Protein 6.0 L Albumin 3.2 L Blood Type O Positive Antibody Screen Negative Post-procedural complaints: none Patient Feedback: Patient satisfied with anesthetic care.
[2019-08-31] MEDS: PANTOPRAZOLE SODIUM IV 40 MG VIAL IV PUSH ×2 (09:14→20:48)
[2019-08-31] MEDS: LACTATED RINGERS 1,000 ML 150 ML IV CONT (10:02)
--- NOTE | 2019-08-31 10:11 | P.PNAN_ITS ---
Anes - Eval Final PreProcedure Day of Procedure 08/31/19 10:11 Patient weight: obese Heart: regular rate and rhythm Lungs: clear to auscultation Airway: Mallampati scale class II Neurological: alert and oriented Last oral intake: >/= 8 hours ASA classification: II Emergent: no Anesthetic plan: proceed Anesthesia type and monitoring: general ETT and standard monitoring Informed Consent: The patient's anesthetic plan and its attendant risks and noble efits were discussed with the patient/family/POA. Questions were solicited and answers provided to the satisfaction of the patient/family/POA.
--- NOTE | 2019-08-31 12:46 | PC.NURSE ---
Returned from GI Lab.STRETCHER SITES CLEAN ACCOUNTS PAYABLE OR RECEIVABLE CLERK ABDOMEN IS SOFT PT STATES THAT SHE IS FEELING BETTER, IV INFUSING WITHOUT DIFFICULTY.
--- NOTE | 2019-08-31 15:12 | PM.IMPN ---
Progress Note: A&P Assessment and Plan (1) Cholecystitis with cholelithiasis: Qualifiers: Biliary obstruction: without biliary obstruction Cholecystitis acuity: acute Cholelithiasis location: gallbladder Qualified Code(s): K80.00 - Calculus of gallbladder with acute cholecystitis without obstruction Code(s): K80.10 - Calculus of gallbladder with chronic cholecystitis without obstruction Status: Acute Assessment and Plan: The pt presented with progressively worsening RUQ abdominal pain since May 2019. RUQ ultrasound revealed cholelithiasis, mild gallbladder wall thickening, and positive sonographic James sign. Her clinical picture was consistent with cholecystitis and IV zosyn was initiated. LFTs were elevated. HIDA scan was normal. She underwent laparoscopic cholecystectomy with intraoperative cholangiogram by Dr. Callejas. She tolerated the procedure well. The intraoperative cholangiogram revealed back filling of contrast beyond the distal common bile duct suggesting a possible distal common bile duct stone. She underwent ERCP by Dr. Torres which revealed a sludge filling defect and a small papillary orifice which were treated with sphincterotomy and balloon clearance. Per GI, she may advance her diet to a full liquid diet for lunch and low fat diet for dinner. If she tolerates this well, she may discharge from a GI standpoint. Plan to continue IV analgesics as needed. Additional GI and general surgery input is greatly appreciated. (2) Elevated LFTs: Code(s): R79.89 - Other specified abnormal findings of blood chemistry Status: Acute Assessment and Plan: AST is 266, ALT 205, and ALP is 260 are elevated today. This is likely due to her acute cholecystitis with biliary filling defect. She is s/p ERCP today and this should likely improve. Her pain is resolving and she feels much better. Hepatitis panel was negative. Plan to continue to monitor. (3) Gastroesophageal reflux disease: Code(s): K21.9 - Gastro-esophageal reflux disease without esophagitis Status: Acute Assessment and Plan: The patient has a hx of gastric ulcer in 2013 and was told that she had Arreola's esophagus at that time. GI is on board and recommendations are greatly appreciated. She will need an elective EGD outpatient after discharge. Plan to continue protonix. Subjective Date/time seen: 08/31/19 15:12 Interval history: Mrs. Dangelo is seen and examined at bedside following ERCP. She reports mild incisional tenderness but is feeling well otherwise. She denies fever and chills. She reports some bloating discomfort and pain for approximately 6 hours following laparoscopic cholecystectomy which resolved 6 hours after the procedure. She is passing flatus. She reports mild nausea earlier today which has resolved. She denies vomiting. She denies chest pain, dyspnea, and palpitations. She denies headaches, dizziness, and lightheadedness. She has no other complaints at this time. Review of Systems Review of Systems: All systems reviewed & are unremarkable except as noted in HPI and below Exam Narrative: Exam Narrative: General: Pleasant, healthy appearing, well-developed and well-nourished 38 y.o. female who is lying in the semi-recumbent position in no acute distress. HEENT: Normocephalic and atraumatic. Conjunctivae and lids normal. Mucous membranes are tacky. Neck: Supple. No lymphadenopathy or masses. Cardiac: Rate and rhythm regular. S1 and S2 normal. No murmur. Lungs: Effort normal. Lungs are clear without rales, rhonchi, or wheezes. Abdomen: Normoactive bowel sounds. Abdomen is soft, non-distended, and mildly tender at the incisions. Extremities: No edema to the lower extremities bilaterally. Gladis sign is negative. 2+ PT and DP bilaterally. Neurological: Alert. Exam is non-focal to casual conversation. Speech is clear. Skin: Warm and dry. 4 laparoscopic cholecystectomy incisions well-richardson
--- NOTE | 2019-08-31 15:12 | PM.PNGS ---
Progress Note: A&P Assessment and Plan (1) Cholecystitis with cholelithiasis: Qualifiers: Biliary obstruction: without biliary obstruction Cholecystitis acuity: acute Cholelithiasis location: gallbladder Qualified Code(s): K80.00 - Calculus of gallbladder with acute cholecystitis without obstruction Code(s): K80.10 - Calculus of gallbladder with chronic cholecystitis without obstruction Status: Acute Assessment and Plan: Doing well on POD#1. Surgically stable for discharge once ok with Dr. Torres Await ERCP results today. (2) Elevated LFTs: Code(s): R79.89 - Other specified abnormal findings of blood chemistry Status: Acute Subjective Subjective Date/Time Seen: 08/31/19 15:12 Post Op day: 1 Patient reports: feels better Interval history: Pain controlled this morning. Planning for ERCP with Dr. Torres today. Exam GI: Inspection: normal to inspection and incision (C/D/I) Objective Data Vital Signs Vital Signs: Vital Signs - 24 hr 08/30/19 16:10 08/30/19 16:25 08/30/19 16:40 Temperature 36.9 C Pulse Rate 75 74 76 Respiratory Rate 12 18 14 Blood Pressure 144/98 H 116/67 112/68 Pulse Oximetry 100 100 96 08/30/19 16:55 08/30/19 17:10 08/30/19 17:25 Temperature 36.5 C Pulse Rate 73 69 69 Respiratory Rate 12 16 18 Blood Pressure 110/71 108/73 121/74 Pulse Oximetry 97 94 95 08/30/19 17:40 08/30/19 18:10 08/30/19 19:10 Temperature 36.3 C L 36.3 C L 36.8 C Pulse Rate 71 66 69 Respiratory Rate 18 16 18 Blood Pressure 115/72 128/78 117/71 Pulse Oximetry 94 97 98 08/30/19 22:00 08/31/19 02:00 08/31/19 04:00 Temperature 36.4 C 36.5 C 36.2 C L Pulse Rate 74 78 78 Respiratory Rate 20 20 20 Blood Pressure 116/70 112/62 112/62 Pulse Oximetry 100 98 98 08/31/19 06:00 08/31/19 08:00 08/31/19 09:49 Temperature 36.5 C 36.4 C L Pulse Rate 75 75 63 Respiratory Rate 20 20 15 Blood Pressure 109/68 119/76 Pulse Oximetry 100 100 100 08/31/19 11:27 08/31/19 11:37 08/31/19 11:47 Temperature 36.6 C Pulse Rate 87 76 69 Respiratory Rate 20 16 15 Blood Pressure 133/82 125/81 129/81 Pulse Oximetry 100 100 97 08/31/19 11:57 08/31/19 12:07 Temperature Pulse Rate 67 72 Respiratory Rate 16 22 H Blood Pressure 127/82 120/79 Pulse Oximetry 97 96 Intake/Output Intake/Output: Intake & Output 08/28/19 08/29/19 08/30/19 08/31/19 23:59 23:59 23:59 23:59 Intake Total 100 1435 1828 Output Total 800 200 Balance 950 417 0655 Meds/Results Medications: Active Medications Generic Name Dose Route Start Last Admin Trade Name Freq PRN Reason Stop Dose Admin Amitriptyline HCl 50 mg 08/29/19 21:00 08/30/19 20:10 Elavil PO 50 mg HS LAMAR Administration Piperacillin/Tazobactam/Dextrose 3.375 gm in 50 mls @ 100 mls/hr 08/29/19 18:00 08/31/19 12:45 Zosyn 3.375 Gm/D5w 50ml Pm IVPB 100 mls/hr Q6HR LAMAR Administration Sodium Chloride 1,000 mls @ 100 mls/hr 08/29/19 20:35 08/31/19 05:24 Normal Saline Iv IV CONT 100 mls/hr .Q10H LAMAR Infusion Ketorolac Tromethamine 30 mg 08/30/19 19:43 08/31/19 02:41 Toradol Inj IV PUSH 30 mg Q6H PRN Administration Pain Rated 4-6 Morphine Sulfate 2 mg 08/29/19 20:32 08/30/19 22:51 Morphine Sulfate Inj IV PUSH 2 mg Q4H PRN Administration Pain Rated 7-10 Non-Formulary Medication 1 tablet 08/29/19 21:00 Norgestimate-Ethinyl Estradiol [Tri-Sprintec (28)] PO 09/28/19 21:01 HS LAMAR Ondansetron HCl 4 mg 08/30/19 17:17 Zofran Inj IV PUSH Q4H PRN Nausea And Vomiting Pantoprazole Sodium 40 mg 08/29/19 23:10 08/31/19 09:14 Protonix Iv IV PUSH 40 mg Q12HR LAMAR Administration Zolpidem Tartrate 10 mg 08/29/19 21:58 08/30/19 20:13 Ambien PO 10 mg HS PRN Administration Insomnia Radiology Results: ITS Impressions Upper Quadrant Ultrasound 08/29/19 14:22 IMPRESSION: 1. Cholelithiasis, mild gallbladder wa
[2019-08-31] MEDS: AMITRIPTYLINE HCL 25 MG TABLET 50 MG PO (20:48)
[2019-08-31] MEDS: ZOLPIDEM TARTRATE 5 MG TABLET 10 MG PO (20:48)
[2019-09-01 02:00] VITALS: BP 118/68; PULSE 67; RESP 16; TEMP 36.4; O2SAT 96
[2019-09-01] MEDS: SODIUM CHLORIDE 0.9% IV 1,000 ML 100 ML IV CONT (03:12)
[2019-09-01 06:00] VITALS: BP 119/73; PULSE 63; RESP 16; TEMP 36.4; O2SAT 97
[2019-09-01 06:34] LABS: Hematocrit 30.5 % (37.0-47.0); Hemoglobin 9.5 g/dL (12.0-15.0); Mean Corpuscular HGB Conc 31.1 g/dl (32-36); Mean Corpuscular Hemoglobin 30.5 pg (26-34); Mean Corpuscular Volume 98.1 fl (80-100); Platelet Count Result 241 k/mm3 (150-375); Red Blood Count 3.11 M/mm3 (4.2-5.4); Red Cell Distribution Width 12.8 % (11.5-14.5); White Blood Count 4.8 K/mm3 (4.5-10.0)
[2019-09-01 06:43] LABS: Alanine Aminotransferase 171 U/L (4-35); Albumin Level 2.9 g/dL (3.5-5.1); Alkaline Phosphatase 247 U/L (38-126); Aspartate Amino Transferase 147 U/L (14-36); Bilirubin,Total 0.5 mg/dL (0.2-1.3); Blood Urea Nitrogen 8 mg/dL (7-17); Carbon Dioxide 22 mmol/L (22-30); Chloride 108 mmol/L (98-107); Estimated CRCL calculation 116 ml/min; Estimated Glomerular Filt Rate > 60; Glucose 94 mg/dL (65-105); Potassium 3.6 mmol/L (3.4-5.0); Sodium 136 mmol/L (137-145)
[2019-09-01] MEDS: PANTOPRAZOLE SODIUM IV 40 MG VIAL IV PUSH (08:30)
--- NOTE | 2019-09-01 09:39 | WPDANESPN ---
Anes - Prog Note Post-Op Date/Time: 09/01/19 09:39 Cardiovascular status: normal Respiratory status: normal Airway patency: baseline Mental status: baseline Post-Op hydration status: normal Vital Signs: Last Vital Signs Temp 36.4 C 09/01/19 06:00 Pulse 63 09/01/19 06:00 Resp 16 09/01/19 06:00 BP 119/73 09/01/19 06:00 Pulse Ox 97 09/01/19 06:00 I/O: Intake & Output 08/31/19 09/01/19 09/01/19 23:59 07:59 15:59 Intake Total 740 1443 Output Total 750 Balance 740 693 Laboratory Tests 09/01/19 05:59 09/01/19 05:59 09/01/19 09/01/19 05:59 05:59 WBC 4.8 RBC 3.11 L Hgb 9.5 L Hct 30.5 L MCV 98.1 D MCH 30.5 MCHC 31.1 L RDW 12.8 Plt Count 241 MPV 11.0 H Sodium 136 L Potassium 3.6 Chloride 108 H Carbon Dioxide 22 BUN 8 Creatinine 0.70 Estim Creat Clear Calc 116 Estimated GFR > 60 Glucose 94 Calcium 8.0 L Total Bilirubin 0.5 AST 147 H ALT 171 H Alkaline Phosphatase 247 H Total Protein 6.0 L Albumin 2.9 L Post-procedural complaints: none Patient Feedback: Patient satisfied with anesthetic care.
--- NOTE | 2019-09-01 10:23 | PM.IMPN ---
Progress Note: A&P Assessment and Plan (1) Cholecystitis with cholelithiasis: Qualifiers: Biliary obstruction: without biliary obstruction Cholecystitis acuity: acute Cholelithiasis location: gallbladder Qualified Code(s): K80.00 - Calculus of gallbladder with acute cholecystitis without obstruction Code(s): K80.10 - Calculus of gallbladder with chronic cholecystitis without obstruction Status: Acute Assessment and Plan: The pt presented with progressively worsening RUQ abdominal pain since May 2019. RUQ ultrasound revealed cholelithiasis, mild gallbladder wall thickening, and positive sonographic James sign. Her clinical picture was consistent with cholecystitis and IV zosyn was initiated. LFTs were elevated. HIDA scan was normal. She underwent laparoscopic cholecystectomy with intraoperative cholangiogram by Dr. Callejas 08/29. She tolerated the procedure well. The intraoperative cholangiogram revealed back filling of contrast beyond the distal common bile duct suggesting a possible distal common bile duct stone. She underwent ERCP by Dr. Torres 08/30 which revealed a sludge filling defect and a small papillary orifice which were treated with sphincterotomy and balloon clearance. She had some RUQ/epigastric abdominal discomfort yesterday so she was observed overnight. She tolerated a full liquid diet well for breakfast today and is going to advance her diet for lunch to a low fat diet. Hopeful discharge today if she tolerates a low fat diet well. Appreciate continued general surgery and GI input. (2) Elevated LFTs: Code(s): R79.89 - Other specified abnormal findings of blood chemistry Status: Acute Assessment and Plan: LFTs are trending down today. Bilirubin is decreased at 0.5. Her transaminitis was likely due to acute cholecystitis with biliary filling defect. She is s/p ERCP 08/31. She will need a repeat CMP in 1 week outpatient. (3) Gastroesophageal reflux disease: Code(s): K21.9 - Gastro-esophageal reflux disease without esophagitis Status: Acute Assessment and Plan: The patient has a hx of gastric ulcer in 2013 and was told that she had Arreola's esophagus at that time. GI is on board and recommendations are greatly appreciated. She will need an elective EGD outpatient after discharge. Plan to continue protonix. Subjective Date/time seen: 09/01/19 10:23 Interval history: Mrs. Dangelo is seen and examined at bedside. She is feeling well today and is hoping to go home. She reports that she tolerated a full liquid diet well without nausea or vomiting. She reports mild incisional discomfort and some bloating but has no other concerns. She denies fever and chills. She denies chest pain and shortness of breath. She has been walking around today without difficulty. She is passing flatus. Review of Systems Review of Systems: All systems reviewed & are unremarkable except as noted in HPI and below Exam Narrative: Exam Narrative: General: Pleasant, well-nourished and well-developed 38 y.o. female walking around the room cleaning up. She is in no acute distress. HEENT: Conjunctivae and lids normal. EOMI. Mucous membranes are tacky. Neck: Supple. Cardiac: RRR Lungs: Normal effort Lungs are clear to auscultation. Abdomen: Laparoscopic incisions are c/d/i without surrounding erythema. Bowel sounds are normoactive .Abdomen is soft, non-distended, and non-tender with the exception of one incision which is mildly tender. Extremities: No edema to the lower extremities bilaterally. Gladis sign is negative. 2+ PT and DP bilaterally. Neurological: Alert. Exam is non-focal to casual conversation. Speech is clear. Skin: Warm and dry. Psychiatric: Judgment and insight intact. Mood pleasant and affect normal. Objective Data Vital Signs Vital Signs: Vital Signs - 24 hr 08/31/19 11:27 08/31/19 11:37 08/31/19 11:47 Temperature 97.9 F Pulse Rate 87 76 69 Respi
--- NOTE | 2019-09-01 10:28 | WPDGIPROGNO ---
Progress Note: A&P Additional Plan Patient alert this morning. Notes some mid epigastric discomfort primarily with movement. Tolerating liquid diet with no difficulty. Physical exam patient is alert. Be afebrile. Vital signs stable. HEENT exam reveals her to be anicteric. Lungs are clear to auscultation and percussion. Heart is without murmur or extra sounds. Abdominal exam bowel sounds are present abdomen is soft. Mild tenderness in the epigastric period noted. Labs reveal total bilirubin 0.5, AST 147, ALT 171, alk-phos 247. Lipase is 33. Impression 1. Status post lap choly. For cholecystitis. Patient improving clinically. May have some incisional tenderness. 2. Common bile duct sludge. Removed with ERCP and sphincterotomy. Patient remaines mildly tender this morning. Plan to advance to low-fat diet. And discharge if she is able to function well today. Plan is for follow-up LFTs in 1 week to ensure resolution. If pain persists she should follow up my office within 1 week. Subjective Date/time seen: 09/01/19 10:28 Objective Data Vital Signs Vital Signs: Vital Signs - 24 hr 08/31/19 11:27 08/31/19 11:37 08/31/19 11:47 Temperature 36.6 C Pulse Rate 87 76 69 Respiratory Rate 20 16 15 Blood Pressure 133/82 125/81 129/81 Pulse Oximetry 100 100 97 08/31/19 11:57 08/31/19 12:00 08/31/19 12:05 Temperature 36.6 C 36.5 C Pulse Rate 67 65 72 Respiratory Rate 16 18 18 Blood Pressure 127/82 131/72 121/79 Pulse Oximetry 97 100 97 08/31/19 12:07 08/31/19 12:35 08/31/19 13:35 Temperature 35.9 C L 36.6 C Pulse Rate 72 74 72 Respiratory Rate 22 H 18 16 Blood Pressure 120/79 124/65 105/63 Pulse Oximetry 96 100 100 08/31/19 22:00 09/01/19 02:00 09/01/19 06:00 Temperature 36.3 C L 36.4 C 36.4 C Pulse Rate 75 67 63 Respiratory Rate 12 16 16 Blood Pressure 101/57 L 118/68 119/73 Pulse Oximetry 98 96 97 Intake/Output Intake/Output: Intake & Output 06/08/30/19 08/31/19 09/01/19 23:59 23:59 23:59 23:59 Intake Total 100 1435 3530 1443 Output Total 800 200 750 Balance 944 942 4344 693 Meds/Results Medications: Active Medications Generic Name Dose Route Start Last Admin Trade Name Freq PRN Reason Stop Dose Admin Amitriptyline HCl 50 mg 08/29/19 21:00 08/31/19 20:48 Elavil PO 50 mg HS LAMAR Administration Ketorolac Tromethamine 30 mg 08/30/19 19:43 08/31/19 02:41 Toradol Inj IV PUSH 30 mg Q6H PRN Administration Pain Rated 4-6 Morphine Sulfate 2 mg 08/29/19 20:32 08/30/19 22:51 Morphine Sulfate Inj IV PUSH 2 mg Q4H PRN Administration Pain Rated 7-10 Non-Formulary Medication 1 tablet 08/29/19 21:00 Norgestimate-Ethinyl Estradiol [Tri-Sprintec (28)] PO 09/28/19 21:01 HS LAMAR Ondansetron HCl 4 mg 08/30/19 17:17 Zofran Inj IV PUSH Q4H PRN Nausea And Vomiting Pantoprazole Sodium 40 mg 08/29/19 23:10 09/01/19 08:30 Protonix Iv IV PUSH 40 mg Q12HR LAMAR Administration Zolpidem Tartrate 10 mg 08/29/19 21:58 08/31/19 20:48 Ambien PO 10 mg HS PRN Administration Insomnia Radiology Results: ITS Impressions Upper Quadrant Ultrasound 08/29/19 14:22 IMPRESSION: 1. Cholelithiasis, mild gallbladder wall thickening, and positive sonographic James sign which can be seen in the setting of cholecystitis. Hepatobiliary Scan Nuclear Medicine 08/30/19 10:03 IMPRESSION: 1. Normal hepatobiliary scintigraphy. Cholangiogram,Operative 08/30/19 16:41 IMPRESSION: 1. Obstructed distal common bile duct. This finding was discussed with Dr. Vazquez in the operating room at 1545 hours on 08/30/2019. Endo Retro Cholangiopancreatogram 08/31/19 16:50 IMPRESSION: 1. Fluoroscopy utilized during ERCP. Please refer to the ERCP procedure note for additional details. Labs Labs: Laboratory Results - last 24 hr 09/01/19 09/01/19 05:59 05:59 WBC 4.8 RBC 3.
--- NOTE | 2019-09-01 10:45 | PM.PNGS ---
Progress Note: A&P Assessment and Plan (1) Cholecystitis with cholelithiasis: Qualifiers: Biliary obstruction: without biliary obstruction Cholecystitis acuity: acute Cholelithiasis location: gallbladder Qualified Code(s): K80.00 - Calculus of gallbladder with acute cholecystitis without obstruction Code(s): K80.10 - Calculus of gallbladder with chronic cholecystitis without obstruction Status: Acute Assessment and Plan: Doing well on POD#2. S/p ERCP with removal of sludge from CBD. LFTs trending down. Okay from surgical standpoint to discharge patient when okay with other services. F/u in [address] Vazquez. Discussed all d/c instructions with the patient today. (2) Elevated LFTs: Code(s): R79.89 - Other specified abnormal findings of blood chemistry Status: Acute Assessment and Plan: Trending down. Additional Plan Discussed plan of care with Dr. Vazquez Subjective Subjective Date/Time Seen: 09/01/19 10:45 Post Op day: 2 (lap gonzalo with IOC) Patient reports: no new complaints, feels better, pain is less, tolerating liquids well (full liquids), voiding w/o difficulty, flatus and no bowel movement Interval history: Patient feeling well today. Tolerating full liquids this morning with no nausea or vomiting. Reports only incisional pain with movement, but mild and tolerable. No other complaints at this time. Review of Systems Review of Systems: All systems reviewed & are unremarkable except as noted in HPI and below Exam Const: General: comfortable, no acute distress, alert and awake Orientation/consciousness: patient oriented x3 GI: Inspection: non-distended and incision (Abdominal incisions clean/dry/intact.) GI Palp: Yes Soft to palpation, Yes Tenderness to palpation present (GI) (incisional), No Guarding due to palpation present (GI) and No Rebound tenderness present Auscultation: normal bowel sounds Neuro: General: patient oriented x3 and moves all extremities Cranial nerves: Yes CN's II-XII intact bilaterally Speech: normal speech Extrem: General: no calf tenderness and no edema Psych: Mental Status: mental status grossly normal Attitude: cooperative Thought process: Normal thought process present Thought content: Yes Normal thought content present Objective Data Vital Signs Vital Signs: Vital Signs - 24 hr 08/31/19 11:27 08/31/19 11:37 08/31/19 11:47 Temperature 36.6 C Pulse Rate 87 76 69 Respiratory Rate 20 16 15 Blood Pressure 133/82 125/81 129/81 Pulse Oximetry 100 100 97 08/31/19 11:57 08/31/19 12:00 08/31/19 12:05 Temperature 36.6 C 36.5 C Pulse Rate 67 65 72 Respiratory Rate 16 18 18 Blood Pressure 127/82 131/72 121/79 Pulse Oximetry 97 100 97 08/31/19 12:07 08/31/19 12:35 08/31/19 13:35 Temperature 35.9 C L 36.6 C Pulse Rate 72 74 72 Respiratory Rate 22 H 18 16 Blood Pressure 120/79 124/65 105/63 Pulse Oximetry 96 100 100 08/31/19 22:00 09/01/19 02:00 09/01/19 06:00 Temperature 36.3 C L 36.4 C 36.4 C Pulse Rate 75 67 63 Respiratory Rate 12 16 16 Blood Pressure 101/57 L 118/68 119/73 Pulse Oximetry 98 96 97 Intake/Output Intake/Output: Intake & Output 08/29/19 08/30/19 08/31/19 09/01/19 23:59 23:59 23:59 23:59 Intake Total 100 1435 3530 1443 Output Total 800 200 750 Balance 920 669 2161 693 Meds/Results Medications: Active Medications Generic Name Dose Route Start Last Admin Trade Name Freq PRN Reason Stop Dose Admin Amitriptyline HCl 50 mg 08/29/19 21:00 08/31/19 20:48 Elavil PO 50 mg HS LAMAR Administration Ketorolac Tromethamine 30 mg 08/30/19 19:43 08/31/19 02:41 Toradol Inj IV PUSH 30 mg Q6H PRN Administration Pain Rated 4-6 Morphine Sulfate 2 mg 08/29/19 20:32 08/30/19 22:51 Morphine Sulfate Inj IV PUSH 2 mg Q4H PRN Administration Pain Rated 7-10 Non-Formulary Medication 1 tablet 08/29/19 21:00 Norgestimate-Ethinyl Estradiol [Tri-Sprinte
--- NOTE | 2019-09-01 13:49 | PM.DS ---
DS: Admitting Diagnosis Admitting Diagnosis Admitting Diagnosis: Calculus of gallbladder with acute cholecystitis without obstruction DS: Discharge Diagnosis Discharge Diagnosis (1) Cholecystitis with cholelithiasis: Qualifiers: Biliary obstruction: without biliary obstruction Cholecystitis acuity: acute Cholelithiasis location: gallbladder Qualified Code(s): K80.00 - Calculus of gallbladder with acute cholecystitis without obstruction Code(s): K80.10 - Calculus of gallbladder with chronic cholecystitis without obstruction Status: Resolved (2) Elevated LFTs: Code(s): R79.89 - Other specified abnormal findings of blood chemistry Status: Acute (3) Gastroesophageal reflux disease: Code(s): K21.9 - Gastro-esophageal reflux disease without esophagitis Status: Chronic DS: Summary Hospital Course Reason for hospitalization: Abdominal pain Hospital Course: Светлана Dangelo is a 38 y.o. female who presented to the emergency room for the evaluation of abdominal pain. She reported intermittent RUQ pain since May 2019 which was progressively worsening in frequency and intensity. RUQ ultrasound revealed cholelithiasis, mild gallbladder wall thickening, and positive sonographic James sign. LFTs were elevated. Her clinical picture was consistent with cholecystitis and IV zosyn was initiated. LFTs were elevated. HIDA scan was normal. She underwent laparoscopic cholecystectomy with intraoperative cholangiogram by Dr. Callejas 08/30/19. She tolerated the procedure well. The intraoperative cholangiogram revealed back filling of contrast beyond the distal common bile duct suggesting a possible distal common bile duct stone. She underwent ERCP by Dr. Torres 08/31/19 which revealed a sludge filling defect and a small papillary orifice which were treated with sphincterotomy and balloon clearance. She had some RUQ/epigastric abdominal discomfort following ERCP so she was observed overnight. She tolerated a full liquid diet well for breakfast and was able to advance to a low fat diet for lunch without abdominal pain, nausea, or vomiting. Her LFTs were trending down and bilirubin decreased. Her transaminitis was likely due to acute cholecystitis with biliary filling defect. Hepatitis serologies were negative. She will need a repeat CMP in 1 week outpatient to ensure resolution of transaminitis. 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 She will need an elective EGD outpatient after discharge and she was instructed to follow-up with GI to schedule this. GI recommended PRN antacids. She was cleared for discharge from GI and general surgery and she was discharged in stable condition on the afternoon of 09/01/19. Status at Discharge Functional status at discharge: independent ambulation Overall status at discharge: patient is back to baseline Time Spent with Patient Time attestation: Total time spent providing and/or coordinating discharge services: 35 minutes Exam Narrative: Exam Narrative: Vitals at presentation: Temp Pulse Resp BP Pulse Ox 98.4 F 80 20 109/65 99 08/29/19 13:37 08/29/19 13:37 08/29/19 13:37 08/29/19 13:37 08/29/19 13:37 Vitals at discharge: Temp Pulse Resp BP Pulse Ox 97.6 F 63 16 119/73 97 09/01/19 06:00 09/01/19 06:00 09/01/19 06:00 09/01/19 06:00 09/01/19 06:00 General: Pleasant, well-nourished and well-developed 38 y.o. female walking around the room cleaning up. She is in no acute distress. HEENT: Conjunctivae and lids normal. EOMI. Mucous membranes are tacky. Neck: Supple. Cardiac: RRR Lungs: Normal effort Lungs are clear to auscultation. Abdomen: [place]
== END 2019-09-01 14:50 | disposition home or self-care (01) ==
LOC: ANHED 16:43 → ANH3MEDSUR 23:05
PROVIDERS: Internal Medicine Gastroenterology; Physician Assistant; Surgery; Admitting Provider Family Medicine; Emergency Provider Emergency Medicine; PCP Family Medicine Sports Medicine; Visit Provider Physician Assistant
PROC: 0FT44ZZ Resection of Gallbladder, Percutaneous Endoscopic Approach (ICD-10-PCS; CPT 47562; principal; 2019-08-30 14:30)
PROC: (CPT 43260; principal; 2019-08-31 10:00)
DX: K80.10 Calculus of gallbladder with chronic cholecystitis without obstruction (principal); K21.9 Gastro-esophageal reflux disease without esophagitis; K22.70 Barrett's esophagus without dysplasia; K57.92 Diverticulitis of intestine, part unspecified, without perforation or abscess without bleeding; K31.9 Disease of stomach and duodenum, unspecified; E66.9 Obesity, unspecified; Z68.31 Body mass index [BMI] 31.0-31.9, adult; F17.290 Nicotine dependence, other tobacco product, uncomplicated; K83.8 Other specified diseases of biliary tract; R79.89 Other specified abnormal findings of blood chemistry; R94.5 Abnormal results of liver function studies
CPT/HCPCS: 43260; 47563; 36415; 74300; 74329; 76705; 78227; 80053; 80074; 81001; 81025; 83690; 83735; 85025; 85027; 86850; 86900; 86901; 88304; 96361; 96365; 96375; 99285; A9270; A9537; C9113; G0378; J0330; J0690; J1100; J1741; J1885; J2250; J2270; J2405; J2543; J2704; J2710; J2805; J3010; J7030; J7120; Q9966